=== PATIENT | female | born 1980 | race Hispanic/Latino ===

== ENCOUNTER 2016-06-01 16:34 | Emergency (ER) | payer OTHER ==
--- NOTE | 2016-06-01 17:29 | C.PDOC ---
History Of Present Illness 36 YO FEMALE PRESENTS TO ED WITH C/O MID-UPPER BACK PAIN FOR 4-5 DAYS, NOW RADIATING TO MID CHEST, PROMPTING VISIT. PT STATES PAIN WORSENS DURING DEEP BREATHS. PT REPORTS H/O HTN AND ASTHMA, NONCOMPLIANT WITH MEDICATIONS FOR SEVERAL MONTHS. NOTES SHE HAS NOT TAKEN ANYTHING FOR PAIN PRIOR TO ARRIVAL. PT OTHERWISE DENIES SOB, COUGH, NAUSEA, VOMITING, DIAPHORESIS, OR OTHER ASSOCIATED SYMPTOMS. Time Seen by Provider: 06/01/16 17:10 Chief Complaint (Nursing): Chest Pain History Per: Patient History/Exam Limitations: no limitations Onset/Duration Of Symptoms: Days Current Symptoms Are (Timing): Still Present Quality: "Pain" Associated Symptoms: denies: Dyspnea, Diaphoresis Exacerbating Factors: Deep Breathing Recent travel outside of the [place]: No Past Medical History Reviewed: Historical Data, Nursing Documentation, Vital Signs Vital Signs: Last Vital Signs Temp 98.4 F 06/01/16 16:47 Pulse 94 H 06/01/16 17:10 Resp 13 06/01/16 16:47 BP 162/86 H 06/01/16 16:47 Pulse Ox 99 06/01/16 18:26 - Medical History PMH: Asthma, HTN - [facility] Procedures TETANUS TOXOID ADMINIST (11/27/13) Family History: States: Unknown Family Hx - Social History Hx Tobacco Use: No Hx Alcohol Use: No Hx Substance Use: No - Immunization History Hx Tetanus Toxoid Vaccination: Yes (2013) Hx Influenza Vaccination: No Hx Pneumococcal Vaccination: No Review Of Systems Except As Marked, All Systems Reviewed And Found Negative. Constitutional: Negative for: Fever, Chills Cardiovascular: Positive for: Chest Pain. Negative for: Palpitations Respiratory: Negative for: Cough, Shortness of Breath, Wheezing Gastrointestinal: Negative for: Nausea, Vomiting, Abdominal Pain Musculoskeletal: Positive for: Back Pain Skin: Negative for: Rash Physical Exam - Physical Exam Appears: Non-toxic, No Acute Distress Skin: Normal Color, Warm, Dry, No Diaphoretic Head: Atraumatic, Normacephalic Chest: Symmetrical, Tenderness (MID-STERNAL, REPRODUCIBLE ), No Ecchymosis Cardiovascular: Rhythm Regular, No Murmur Respiratory: No Accessory Muscle Use, No Rales, No Rhonchi, No Wheezing, Other ( POOR LUNG EFFORT DUE TO PLEURITIC PAIN) Gastrointestinal/Abdominal: Soft, No Tenderness Back: No Vertebral Tenderness, Paraspinal Tenderness (LEFT UPPER PARASCAPULAR TENDERNESS) Extremity: Normal ROM, Capillary Refill (< 2 SEC. ) Neurological/Psych: Oriented x3, Normal Speech, Normal Cognition ED Course And Treatment - Laboratory Results Result Diagrams: 06/01/16 18:07 06/01/16 18:07 Urine POC: Negative ECG: Interpreted By Me ECG Rhythm: Sinus Rhythm ECG Interpretation: Normal Rate From EC O2 Sat by Pulse Oximetry: 99 (ra) Pulse Ox Interpretation: Normal - Radiology CXR: Interpreted by Me CXR Interpretation: Yes: No Acute Disease Reevaluation Time: 18:54 Reassessment Condition: Unchanged (MIN IMPROVE S/P TORADOL. VSS. WILL DOSE PERCOCET, OTC PAIN RX FU PMD) Progress - Re-Evaluation Re-evaluation Note: 06/01/16 17:56 EKG, CXR, CARDIAC LABS ORDERED. TX WITH TORADOL. REASSESS. - Data Reviewed Data Reviewed: Lab, Diagnostic imaging, EKG, Old records Disposition Counseled Patient/Family Regarding: Studies Performed, Diagnosis, Need For Followup - Disposition Referrals: [facility] [Outside] [facility] [Outside] YOUR,PMD [Other] Disposition: HOME/ ROUTINE Disposition Time: 18:49 Condition: IMPROVED Additional Instructions: TAKE ALEVE AND/OR TYLENOL DIRECTED FOR PAIN. FOLLOW UP WITH YOUR PMD Instructions: Chest Wall Pain (ED) - Clinical Impression Clinical Impression: Chest wall pain, Back pain - Scribe Statement The provider has reviewed the documentation as recorded by the Lissett Beebe Provider Scribe Attestation: All medical record entries made by the Lissett were at my direction and personally dictated by me. I have reviewed the chart and agree that the record accurately reflects my personal performance of the history, physical exam, medical decision making, and the department course for this patient. I have also personally directed, reviewed, and agree with the discharge instructions and disposition.
[2016-06-01 18:13] LABS: BASO # 0.1 K/uL (0.0-0.2); BASO % 0.5 % (0.0-2.0); EOS # 0.1 K/uL (0.0-0.7); HEMATOCRIT 38.3 % (34.0-47.0); LYMPH # 2.5 K/uL (1.0-4.3); MEAN CELL VOLUME 87.9 fL (81.0-99.0); MEAN CORPUSCULAR HEMOGLOBIN 29.3 pg (27.0-31.0); MEAN CORPUSCULAR HGB CONC 33.3 g/dL (33.0-37.0); MEAN PLATELET VOLUME 8.3 fL (7.2-11.7); MONO # 0.7 K/uL (0.0-0.8); MONO % 6.6 % (0.0-10.0); NRBC % 0.1 % (0.0-2.0); RED CELL DISTRIBUTION WIDTH 13.6 % (11.5-14.5); WHITE BLOOD COUNT 10.3 K/uL (4.8-10.8)
--- NOTE | 2016-06-01 18:20 | RAD ---
HISTORY: Chest pain COMPARISON: No prior. TECHNIQUE: Chest PA and lateral FINDINGS: LUNGS: The lungs are well inflated and clear. PLEURA: No significant pleural effusion identified. No pneumothorax apparent. CARDIOVASCULAR: Normal. OSSEOUS STRUCTURES: No significant abnormalities. VISUALIZED UPPER ABDOMEN: Normal. OTHER FINDINGS: None. IMPRESSION: No active pulmonary disease.
[2016-06-01 18:21] LABS: CHLORIDE 98 mmol/L (98-107); SODIUM 137 mmol/L (132-148)
[2016-06-01 18:24] LABS: BLOOD UREA NITROGEN 14 mg/dL (7-17); CARBON DIOXIDE 24 mmol/L (22-30); GFR AFRICAN-AMERICAN > 60; GLUCOSE,RANDOM 88 mg/dL (65-105)
[2016-06-01] MEDS ORDERED: Oxycodone/Acetaminophen 5/325 mg Tab PO STA (18:53)
[2016-06-01] MEDS ORDERED: Oxycodone/Acetaminophen 5/325 mg Tab ONE (19:00)
[2016-06-01 19:04] VITALS: BP 124/84; PULSE 78; RESP 18; TEMP 98.1; O2SAT 100
--- NOTE | 2016-06-03 06:34 | CARD ---
APPROVED REPORT EKG Measurement Heart [id number] CT 134P45 [id number] <Conclusion> Normal sinus rhythm with sinus arrhythmia T wave abnormality, consider inferior ischemia Abnormal ECG
== END 2016-06-01 18:55 | disposition home or self-care (01) ==
LOC: C.ER 16:34
DX: R07.89 Other chest pain (principal); M54.89 Other dorsalgia
CPT/HCPCS: 71020; 80048; 84484; 85025; 85378; 93005; 96374; 99285; J1885